=== PATIENT | female | born 1980 | race Two or more races ===

== ENCOUNTER 2023-04-13 08:54 | Outpatient (REF) | payer OTHER, SELFPAY ==
--- NOTE | ~2023-04-13 | US_ITS ---
EXAMINATION: US PELVIS COMPLETE CLINICAL INFORMATION: Pelvic and perineal pain COMPARISON: None TECHNIQUE: Transabdominal and transvaginal imaging was performed. FINDINGS: The uterus is of normal size and echogenicity and is retroverted in position. A regular homogeneous endometrium is identified measuring 0.9 cm. Trace simple fluid in the endocervical canal. Both ovaries are of normal size and echogenicity. The right measures 1.8 x 2.8 x 1.8 cm for a volume of 4.9 mL. The left measures 2.1 x 2.5 x 2.3 cm for a volume of 6.3 mL. Physiologic involuting right ovarian corpus luteum. There is trace simple physiologic volume pelvic free fluid. US/US pelvic and transvaginal IMPRESSION: Trace simple fluid in the endocervical canal. Otherwise unremarkable pelvic ultrasound.
== END 2023-04-13 08:55 | disposition home or self-care (01) ==
LOC: HO.UMASIMG 08:54
PROVIDERS: Visit Provider Family Medicine
DX: R10.2 Pelvic and perineal pain (principal)
CPT/HCPCS: 76830; 76856